=== PATIENT | male | born 1950 | race Caucasian/White ===

== ENCOUNTER 2020-06-02 09:56 | Outpatient (RCR) | payer MEDICARE, OTHER, SELFPAY ==
--- NOTE | 2020-06-02 11:27 | HP.PTEVAL ---
Patient's Visit Information LEENA MANZANARES is a 69 year old M referred to Physical Therapy by Dr. Vidal Sanchez DO with a diagnosis of Hip Pain. Date of Evaluation: 06/02/20 Physical Therapist: Crystal Alvarez DPT - Visit Plan Frequency: 1x/Week Duration: 1 Week Plan: Patient plans to resume his exercise program at gym- added and educated on postural correction, core strength and importance of pelvic stability. Encouraged to call if questions or concerns. - Subjective Patient reports that he has a lot of pain in the left hip. apt May 17- it was hard to walk without severe pain. Agg mostly by walking. Is taking Aleve in the AM/PM- stopped taking it yesterday and he feels better today. Stairs leading with his left he was unable to push off. 10 years ago had the same problem with his hip and he started doing his exercises again. Hip abduction exercise was unable to do- so he did a stretch band and he has been doing it since the 17 of May- stretching is really helping. He feels that he is about 80-90% back to normal. He has the most pain in the greater troch area and in the back. If he stands for long periods of time he feels like both hips go numb. March 09 he had a big tree taken down and he cut it into smaller pieced and was pushing it with his left leg- but went a few months without it bothering him after that. Does have a little bit of N/T in the legs. Back pain is on/off all the time- works outside a lot so he is bent over a lot. Sleep: not disturbed- sleeps in all positions. PMHx: scanned in chart. Meds: see scanned in chart. - Objective Posture: FH, RS, increased kyphosis- can correct but does not maintain. Gait: slightly antalgic- decreased stance on the left LE with mild hip drop. SLS: 10 sec with increased hip drop. HR/TR: able. [place]: tender along glut med. ROM: WNL in all planes of lumbar and hip- tightness and discomfort with IR of the hip. Strength: Core: fair minus, Hip: flexion/abd/ext: 4+/5 IR: 4+/5, ER: 4-/5 Knee: 5/5, Ankle: 5/5. Special Test: Scour: positive, RYANN: positive. Slump: negative - Goals Goal 1:: Patient will be I with HEP and progression Goal Time Frame: 4-6 Weeks - Rehabilitation Potential Physical Therapy Diagnosis: Patient presents with hypomobility- he has decreased strength and core s/s leading to poor posture and increased pain with ADL's and gait. Rehabilitation Potential: Good - Anticipated Interventions Patient/Client Instruction: Educate patient on: Benefits of Fitness Program Therapeutic Exercise to Include: Strength training, Balance training, Body mechanics, Postural training, Flexibilty training, Gait and locomotor training, Dynamic Lumbar Stabilization Thank you for the opportunity to evaluate your patient. For Medicare and Medicare HMO plans, please review the plan of care and approve it. It will need to be FAXED BACK to us at [phone] for Medicare purposes. For Medicare only, by signing this I certify the plan of care. Please let me know if there are questions or concerns regarding this plan of care. Physician Signature: Date:
== END 2020-06-02 19:00 | disposition home or self-care (01) ==
LOC: PT 09:56
PROVIDERS: PCP Student in an Organized Health Care Education/Training Program; Referring Provider Student in an Organized Health Care Education/Training Program; Visit Provider Student in an Organized Health Care Education/Training Program
DX: M25.552 Pain in left hip (principal)
CPT/HCPCS: 97110; 97161

== ENCOUNTER → 2025-03-04 13:36 | Outpatient (REF) | payer MEDICARE, OTHER, SELFPAY ==
--- NOTE | 2025-03-04 13:46 | CT_ITS ---
PROCEDURE: LIMITED CHEST CT CARDIAC ONLY REASON FOR EXAM: HTN TECHNIQUE: Supine chest CT without contrast,. One or more dose reduction techniques were used (e.g., Automated exposure control, adjustment of the mA and/or kV according to patient size, use of iterative reconstruction technique). COMPARISON: None FINDINGS: Hardware: None Lymph nodes: Small benign-appearing mediastinal lymph nodes. Heart and Vasculature: Normal heart size. No pericardial effusion. Atherosclerotic calcifications of the thoracic aorta. Thoracic aorta and pulmonary arteries have normal contours; noncontrast technique limits evaluation. Coronary Artery Calcifications: Present Lungs and Airways: Mild emphysematous changes are present. No septal thickening nodules or abnormal pulmonary opacities. Pleura: Unremarkable Upper Abdomen: Unremarkable Bones: Unremarkable CT/Limited Chest CT Cardiac Only IMPRESSION: Coronary artery calcification (CAC) is is present Reading Location: [place] [id number]
--- NOTE | 2025-03-04 17:06 | CA.SCORE ---
Calcium Scoring Date of Study:: 03/04/25 Indications Indications: Hypertension Coronary Calcium Scoring: High-resolution Computed Tomographic imaging of the chest was performed on [03/04/2025], with particular attention paid to the coronary arteries. Images from the examination were analyzed for the presence and extent of coronary artery calcification , using coronary calcium quantification software. The patient tolerated the procedure well and there were no complications. The results of the coronary calcification analysis are provided below. Findings Coronary Artery Left Main (LM): 0 Left Anterior Descending (LAD): 269 Left Circumflex (LCX): 23.8 Right Coronary Artery (RCA): 0 Total Agatston Score: 292.8 Percentile Rankin to 50th percentile Calcium Scoring Interpretation: Different methods to categorize the overall amount of coronary plaque. Overall amount CAC SIS Visual of coronary plaque P1 Mild -100 <2 1-2 vessels with mild amount of plaque P2 Moderate 101-300 3-4 1-2 vessels with moderate amount, 3 vessels with mild amount of plaque P3 Severe 301-999 5-7 3 vessels with moderate amount, 1 vessel with severe amount of plaque P4 Extensive >1000 >8 2-3 vessels with severe amount of plaque Calcium Score: Moderate: 1-2 vessels w/moderate amt, 3 vessels w/mild amt of plaque Conclusion: Moderate plaque disease noted in 1 vessel the LAD.
== END ==
LOC: CT 13:36
PROVIDERS: PCP Student in an Organized Health Care Education/Training Program
DX: I10 Essential (primary) hypertension (principal); E78.5 Hyperlipidemia, unspecified; I47.10 Supraventricular tachycardia, unspecified; G47.00 Insomnia, unspecified; G47.33 Obstructive sleep apnea (adult) (pediatric)
CPT/HCPCS: 75571; 76380